=== PATIENT | female | born 1995 | race Two or more races ===

== ENCOUNTER 2025-02-13 20:09 | Emergency (ER) | payer OTHER ==
[~2025-02-13] VITALS: Ht 152.4 cm; Wt 74.8 kg
[2025-02-13] MEDS ORDERED: MORPHINE SULFATE INJ 4 MG/ML DISP.SYRIN ONE (20:58)
[2025-02-13] MEDS: MORPHINE SULFATE INJ 2 MG/ML DISP.SYRIN IM ONE (21:09)
[2025-02-13] MEDS ORDERED: IBUP-1490 PO (21:23)
[2025-02-13] MEDS ORDERED: HYDR-3976 PO (21:23)
[2025-02-13 21:49] VITALS: BP 115/81; TEMP 98.6; O2SAT 98
== END 2025-02-13 21:50 | disposition home or self-care (01) ==
LOC: EDBD 20:11 → ER 20:11
DX: S42.391A Other fracture of shaft of right humerus, initial encounter for closed fracture (principal); V43.62XA Car passenger injured in collision with other type car in traffic accident, initial encounter; Y93.89 Activity, other specified; Y92.415 Exit ramp or entrance ramp of street or highway as the place of occurrence of the external cause; Y99.8 Other external cause status
CPT/HCPCS: 29105; 73060; 73090; 96374; 99284; J2270